=== PATIENT | male | born 2000 | race Two or more races ===

== ENCOUNTER 2022-04-16 18:06 | Emergency (ER) | payer OTHER, SELFPAY ==
--- NOTE | ~2022-04-16 | XR_ITS ---
EXAM: XR lumbar spine 2-3V DATE: 04/16/2022 19:06 HISTORY: low back pain . COMPARISON: None available. 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 Pe dicles intact. Normal vertebral body alignment. Exaggerated lumbar lordosis Vertebral body heights pr eserved. Mild L4-5 and moderate L5-S1 disc space narrowing. Lower lumbar facet sclerosis. No fracture or dislocation. IMPRESSION: Lower lumbar degenerative disc disease and facet arthropathy. Reviewed, dictated and finalized at location K.
[2022-04-16 18:15] VITALS: BP 147/90; PULSE 103; RESP 18; TEMP 36.6; O2SAT 100
--- NOTE | 2022-04-16 19:22 | ED.BACK ---
HPI - Back Pain/Injury General Chief Complaint: Back Pain/Injury Stated Complaint: back pain Time Seen by Provider: 04/16/22 18:40 History of Present Illness HPI Narrative: 21-year-old male presents the emergency room for evaluation of low back pain that is progressively gotten worse over 3 weeks. 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 Patient states his back pain is worse when twisting his torso from side to side and when he is walking. Patient states he has tried Tylenol and ibuprofen on occasion, as well as ice and heating pad. Patient states that he is interventions have not alleviated his pain. Related Data Allergies Allergy/AdvReac Type Severity Reaction Status Date / Time No Known Allergies Allergy Verified 04/16/22 18:18 Review of Systems Review of Systems: CONSTITUTIONAL: Denies fever, chills, or sweats. EYES: Denies visual changes, redness, or discharge. ENT: Denies rhinorrhea, congestion, sore throat, or otalgia. CARDIOVASCULAR: Denies chest pain, palpitations, or edema. RESPIRATORY: Denies cough or dyspnea. GASTROINTESTINAL: Denies abdominal pain, nausea, vomiting, or diarrhea. GENITOURINARY: Denies dysuria or hematuria. SKIN: Denies rash or itching. MUSCULOSKELETAL: Reports low back pain NEUROLOGIC: Denies headache, numbness, dizziness, or weakness. PSYCHIATRIC: Denies anxiety or depression. Exam Narrative: GENERAL: Well-appearing, well-nourished, no physical limitations, and in no acute distress. HEAD: Normocephalic, atraumatic. EYES: Conjunctivae normal, PERRLA and EOMI. CHEST: Clear to auscultation. No respiratory distress. No wheezes rales or rhonchi. No tenderness. HEART: Regular rate and rhythm. No murmur heard. Normal peripheral pulses. BACK: No midline lumbar tenderness, no step-offs, no bony abnormality; FROM; over the bilateral thoracolumbar fascia.+SLE left leg EXTREMITIES: Normal range of motion. No edema. No clubbing or cyanosis SKIN: Warm, dry, no rash. No noted wounds NEURO: No focal deficits. Alert and oriented x3. MAEW. CN's II-XI intact bilaterally, normal gait PSYCH: Cooperative. Normal mood and affect. Course Vital Signs Vital signs: Vital Signs Temperature 36.6 C 04/16/22 18:15 Pulse Rate 103 H 04/16/22 18:15 Respiratory Rate 18 04/16/22 18:15 Blood Pressure 147/90 H 04/16/22 18:15 Pulse Oximetry 100 04/16/22 18:15 Temperature 36.6 C 04/16/22 18:15 Pulse Rate 103 H 04/16/22 18:15 Respiratory Rate 18 04/16/22 18:15 Blood Pressure 147/90 H 04/16/22 18:15 Pulse Oximetry 100 04/16/22 18:15 Discharge Plan Discharge Clinical Impression: Strain of lumbar region Patient Disposition: Home, Self-Care Condition: Stable Instructions: Antibiotic Form, Acute Low Back Pain (ED) Prescriptions: New meloxicam 15 mg tablet 15 mg PO DAILY Qty: 20 0RF methocarbamol 750 mg tablet 750 mg PO TID Qty: 15 0RF Follow-up/Referrals: Arcenio Garner MD [Physician] - PHYSICIAN NOT ON STAFF,NONSTAFF [Primary Care Provider] - Stand Alone Forms: Work/School Release IP Time of Disposition: 19:24
[2022-04-16] MEDS: KETOROLAC (*BKC) 60 MG/2 ML VIAL IM (19:33)
== END 2022-04-16 19:37 | disposition home or self-care (01) ==
PROVIDERS: Emergency Provider Nurse Practitioner Family
DX: S39.012A Strain of muscle, fascia and tendon of lower back, initial encounter (principal); X50.0XXA Overexertion from strenuous movement or load, initial encounter
CPT/HCPCS: 72100; 96372; 99283; J1885